=== PATIENT | female | born 1985 | race Hispanic/Latino ===

== ENCOUNTER 2017-08-07 14:48 | Outpatient (CLI) | payer BC | END 2017-08-07 14:49 | disposition home or self-care (01) | LOC: BICRAD 14:48 | PROVIDERS: ATTEND Internal Medicine Gastroenterology | DX: D64.9 Anemia, unspecified (principal); R14.0 Abdominal distension (gaseous); R63.5 Abnormal weight gain; R19.8 Other specified symptoms and signs involving the digestive system and abdomen | CPT/HCPCS: 74022 ==

== ENCOUNTER 2019-09-03 08:32 | Outpatient (CLI) | payer BC ==
--- NOTE | 2019-09-03 09:29 | MMO ---
Bilateral MAMMO Bilat Diag [facility]. CLINICAL HISTORY: Patient is 34 years old and is seen for diagnostic exam and lump or thickening in the left breast at 9 o'clock. The patient has the following family history of breast cancer: sister, at age 26, malignant (generic), and great aunt, malignant (generic), . The patient has no personal history of cancer. VIEWS: The views performed were: bilateral craniocaudal with tomosynthesis; bilateral mediolateral oblique with tomosynthesis; and bilateral mediolateral with tomosynthesis. FILMS COMPARED: The present examination has been compared to a prior imaging study performed at [facility] on 09/03/2019. This study has been interpreted with the assistance of computer-aided detection. MAMMOGRAM FINDINGS: The breasts are heterogeneously dense, which could obscure a lesion on mammography. A suspicious left sided mass is seen on US @ 9:00 (palpable). In the right breast, there are no suspicious masses, calcifications or areas of architectural distortion. IMPRESSION: FINDING IN THE LEFT BREAST IS SUSPICIOUS. AN ULTRASOUND-GUIDED BREAST BIOPSY IS RECOMMENDED. THE RESULTS OF THIS EXAM WERE SENT TO THE PATIENT. ACR BI-RADS Category 4 - Suspicious abnormality - biopsy should be considered D/W pt in person @ 9:25 am MAMMOGRAPHY NOTE: 1. A negative mammogram report should not delay a biopsy if a dominant of clinically suspicious mass is present. 2. Approximately 10% to 15% of breast cancers are not detected by mammography. 3. Adenosis and dense breasts may obscure an underlying neoplasm. Reported by: SHILPA DESAI MD Electonically Signed: [id number]
--- NOTE | 2019-09-03 09:47 | ULT ---
LEFT BREAST ULTRASOUND: Date: 09/03/2019 HISTORY: 34-year-old female with palpable left breast mass at 9 o'clock position. Patient has a sister who had breast cancer at age 26. FINDINGS: Correlation is made with the mammogram from same date. Sonographic evaluation of the region of palpable concern at the 9 o'clock position of the left breast demonstrates a shadowing mass measuring 11.0 x 7.0 x 7.0 mm. IMPRESSION: BI-RADS Category 4 - Suspicious abnormality. Ultrasound-guided biopsy is recommended Discussed in person with the patient at 0925 hours.
--- NOTE | 2019-09-03 11:50 | MMO ---
FILMS COMPARED: The present examination has been compared to a prior imaging study performed at [facility] on 09/03/2019. MAMMOGRAM FINDINGS: Left biopsy clip. IMPRESSION: FINDING IN THE LEFT BREAST IS CONFIRMED UTILIZING POST PROCEDURE MAMMOGRAM. Reported by: SHILPA DESAI MD Electonically Signed: [id number]
--- NOTE | 2019-09-03 12:01 | ULT ---
Exam: Left breast mass for ultrasound-guided biopsy HISTORY: Left breast mass, corresponding to palpable focus. COMPARISON: 09/03/2019 FINDINGS: Successful left breast biopsy with ultrasound guidance. A total of 3, 14-gauge core biopsy samples were obtained and placed directly in formalin. Postbiopsy clip was placed. Patient tolerated the procedure well. No immediate or postprocedure complications. TECHNIQUE: Consent obtained to perform a left breast biopsy with ultrasound guidance. Patient's left breast was prepped in a sterile fashion. 1% lidocaine, buffered with sodium bicarbonate was used for local anesthesia. A small dermatotomy was made. Total of 3, 14-gauge core biopsy samples were obt ained and placed directly in formalin. Patient tolerated the procedure well. No immediate or post procedure complication. Postbiopsy clip was placed. Post procedure mammogram was performed. IMPRESSION: Successful ultrasound-guided biopsy of the left breast. Biopsy clip was placed. Postproce dure mammogram performed. Refer to separate report. Final pathologic diagnosis us pending.
== END 2019-09-03 08:33 | disposition home or self-care (01) ==
LOC: BICMAMMO 08:32
PROVIDERS: ATTEND Family Medicine
DX: N63.20 Unspecified lump in the left breast, unspecified quadrant (principal); R92.8 Other abnormal and inconclusive findings on diagnostic imaging of breast; C50.312 Malignant neoplasm of lower-inner quadrant of left female breast
CPT/HCPCS: 19083; 77066; 88305; 88341; 88342; G0279

== ENCOUNTER 2021-10-12 07:00 | Outpatient (CLI) | payer BC | END 2021-10-12 07:01 | disposition home or self-care (01) | LOC: BICULT 07:00 | PROVIDERS: ATTEND Physician Assistant Medical | DX: R79.89 Other specified abnormal findings of blood chemistry (principal) | CPT/HCPCS: 76705 ==

== ENCOUNTER 2022-06-30 11:28 | Outpatient (CLI) | payer BC | END 2022-06-30 11:29 | disposition home or self-care (01) | LOC: BICRAD 11:28 | PROVIDERS: ATTEND Family Medicine | DX: M19.90 Unspecified osteoarthritis, unspecified site (principal); M79.672 Pain in left foot ==

== ENCOUNTER 2023-10-30 08:44 | Outpatient (CLI) | payer BC | END 2023-10-30 08:45 | disposition home or self-care (01) | LOC: BICMAMMO 08:44 | PROVIDERS: ATTEND Internal Medicine Hematology & Oncology | DX: Z08 Encounter for follow-up examination after completed treatment for malignant neoplasm (principal); Z85.3 Personal history of malignant neoplasm of breast | CPT/HCPCS: 77066; G0279 ==

== ENCOUNTER 2024-10-30 08:27 | Outpatient (CLI) | payer BC | END 2024-10-30 08:28 | disposition home or self-care (01) | LOC: SCSBT 08:27 | PROVIDERS: ATTEND Nurse Practitioner Family | DX: Z13.820 Encounter for screening for osteoporosis (principal); C50.212 Malignant neoplasm of upper-inner quadrant of left female breast | CPT/HCPCS: 77080 ==